=== PATIENT | male | born 1960 | race Caucasian/White ===

== ENCOUNTER → 2020-11-15 17:58 | Outpatient (CLI) | payer BC | END | disposition home or self-care (01) | LOC: D.LABREF 17:58 | PROVIDERS: ATTEND Orthopaedic Surgery | DX: M17.11 Unilateral primary osteoarthritis, right knee (principal) ==

== ENCOUNTER → 2020-11-16 13:51 | Outpatient (CLI) | payer BC | END | disposition home or self-care (01) | LOC: D.MRI 13:00 | PROVIDERS: ATTEND Orthopaedic Surgery | DX: M25.561 Pain in right knee (principal) ==

== ENCOUNTER 2020-11-17 12:59 | Inpatient (IN) | payer BC ==
[~2020-11-17] VITALS: Ht 188 cm; Wt 112.7 kg
[2020-11-28] MEDS ORDERED: ACETAMINOPHEN500 M1 PO (14:53)
[2020-11-28] MEDS ORDERED: ADVIL200 MG PO (14:53)
[2020-11-29 13:14] LABS: BASOPHILS 1.2 % (0-2); HEMATOCRIT 42.3 % (42.0-54.0); HEMOGLOBIN 14.1 g/dL (13.5-17.5); IMMATURE GRANULOCYTES 0.5 % (0-5); LYMPHOCYTE ABS# 2.45 10x3/uL (1.32-3.57); LYMPHOCYTES 40.6 % (15-50); MCH 31.3 pg (26.0-34.0); MCHC 33.3 g/dL (31.0-37.0); MCV 93.8 fL (80.0-100.0); MEAN PLATELET VOLUME 9.6 fL (7.4-10.4); MONOCYTES 10.3 % (2-11); NEUTROPHIL ABS# 2.62 10x3/uL (1.78-5.38); NEUTROPHILS 43.4 % (40-80); PLATELET COUNT 210 10x3/uL (130-400); RBC 4.51 10x6/uL (4.20-6.10); RDW 13.6 % (11.5-14.5)
[2020-11-29 13:22] LABS: BILIRUBIN NEGATIVE (NEGATIVE); KETONE NEGATIVE (NEGATIVE); NITRITE NEGATIVE (NEGATIVE)
[2020-11-29 13:28] LABS: CALC OSMOLALITY 278 mosm/kg (275-300); CALCIUM 8.8 mg/dL (8.5-10.1); CARBON DIOXIDE 26.9 mmol/L (21.0-32.0); CHLORIDE - SERUM 107 mmol/L (98-107); GLUCOSE 102 mg/dL (74-106); POTASSIUM - SERUM 4.3 mmol/L (3.5-5.1); SODIUM 139 mmol/L (136-145); UREA NITROGEN 15 mg/dL (7-18); eGFR NON AFRICAN AMERICAN 81 mL/min (90-120)
[2020-11-29 14:11] LABS: APTT 32.2 SECONDS (22.8-39.4); INR 1.05 (0.85-1.17); PROTIME 12.6 SECONDS (11.6-15.0)
[2020-12-05] VITALS (11 sets, daily range): BP systolic 108–126; BP diastolic 61–81; Ht 188 cm; Wt 112.7 kg
[2020-12-05] MEDS ORDERED: HYDROCODON-ACE1 EA10 PO (10:35)
--- NOTE | 2020-12-05 13:40 | NUR ---
CAUTERY PAD PLACED ON LEFT THIGH. PLASMA BLADE USED ON SETTING 6/8. AQUAMANTYS USED ON SETTING 170. CAUTERY PAD LOT#[id number] EXP. 05/01/2022
--- NOTE | 2020-12-05 16:00 | NUR ---
RECEIVED TO ROOM 1211 VIA BED FROM PACU. A/O X3. DRESSING TO RIGHT KNEE IS DRY AND INTACT. C/O BEING VERY HUNGRY. GIVEN PB AND CRACKERS TO HOLD HIM OVER UNTILL DINNER.
--- NOTE | 2020-12-05 18:15 | NUR ---
ATE ALL OF DINNER. NO C/O AT THIS TIME. NO CHANGES NOTED. CPM ON RIGHT KNEE AT THIS TIME.
--- NOTE | 2020-12-05 20:00 | NUR ---
ALERT RESTING IN BED CPM IN USE, DENIES PAIN OR NEEDS AT THIS TIME, SEE SHIFT ASSESSMENT CALL LIGHT IN REACH
[2020-12-06 00:09] VITALS: BP 100/56
[2020-12-06 05:41] LABS: HEMATOCRIT 33.8 % (42.0-54.0); HEMOGLOBIN 11.1 g/dL (13.5-17.5); MCH 31.1 pg (26.0-34.0); MCHC 32.8 g/dL (31.0-37.0); MCV 94.7 fL (80.0-100.0); MEAN PLATELET VOLUME 10.1 fL (7.4-10.4); RBC 3.57 10x6/uL (4.20-6.10); RDW 13.9 % (11.5-14.5); WBC 6.2 10x3/uL (4.8-10.8)
[2020-12-06 05:49] LABS: CREATININE - SERUM 1.2 mg/dL (0.6-1.3); MAGNESIUM - SERUM 1.9 mg/dL (1.8-2.4)
[2020-12-06 06:00] VITALS: BP 104/58
--- NOTE | 2020-12-06 07:09 | OP ---
PATIENT NAME: JAMIE ARIZMENDI MEDICAL RECORD: [id number] :62 [facility] AD[facility]ION DATE:12/05/20 SURGEON: RICK PETERSEN DO DATE OF OPERATION: 12/05/2020 PROCEDURE: Right total knee arthroplasty. PREOPERATIVE DIAGNOSIS: Right knee osteoarthritis. POSTOPERATIVE DIAGNOSIS: Right knee osteoarthritis. INDICATIONS: Mr. Arizmendi is a 60-year-old male who has undergone through all manner of nonoperative treatment for conservative management for right knee osteoarthritis to no avail. He is tired of dealing with the pain and is affecting his activities of daily living and wants something done surgically. I informed him of the risks and benefits of this including infection, bleeding, damage to nerves or vessels, need for further surgery, loosening of the hardware, failure of hardware, increased pain, loss of range of motion of the knee and blood clots and even and he signed the consent. SURGEON: Rick Petersen DO DESCRIPTION OF PROCEDURE: The patient was taken to the operative suite, laid in supine position, given spinal and a block and light sedation. He was given 2 grams Ancef, 80 mg gentamicin, and a gram of TXA. The left lower extremity was then prepped and draped in sterile fashion. A timeout was performed and everyone was in agreement with correct side, site, patient and procedure. I began by marking out the incision over the anterior aspect of the right knee and covered in Ioban. I then used a 10 blade scalpel to make careful dissection down to the capsule. Then medial parapatellar approach with a fresh 10 blade and everted the patella, removed part of the fat pad. Milled down the patella. Drill holes for a 32 patella size, mixed cement and put on the patella and on the implants, squeezed into place and held it while the cement dried. I then flexed the knee, took out the ACL into the femoral canal using intramedullary guide to cut the distal femur and pinned it into place and cut the distal femur. I then removed that bone and exposed the tibia, cut the proximal tibia plateau. We then brought the knee into extension, removed the menisci and any extra bone. We then saw the need to remove more bone, removed 4 more millimeters of proximal tibia and 10 extension block then fit well. We then removed the pins and the tibia and sized the femur to be 11, using an 11 cutting block and did 4 cuts through the 4-in-1 cutting block. I then exposed the tibia, sized it to be G, pinned it in place and put the 11 femur, trial on and put a 10 poly in between, brought the knee into extension, had full extension and was very stable in flexion and extension to varus and valgus stress. I then drilled the holes for the femoral lug holes and then the tibia 2 holes. I then removed the trials, irrigated and impacted in the actual implants on the tibia first and then the femur, put the 11 poly in between and snapped it into place. I then tested and it was very stable in flexion and extension with the poly in, varus and valgus stress and good range of motion were smooth. I then irrigated with 10% povidone iodine and 500 mL normal saline solution, let it sit per minute and irrigated out with a liter of normal saline and injected the joint cocktail around the periosteum on both the femur and the tibia and into the quad. I then put in the Rei and vancomycin and tobramycin powder, closed the capsule with #1 Vicryl in a [id number] fashion and then #1 Stratafix. Chinedu Fish certified medical assistant ran over that closure in the capsule. He then OPERATIVE REPORT [id number] JAMIE ARIZMENDI closed the skin with 2-0 Vicryl in an inverted interrupted fashion and placed a ZipLine,Adaptic, 4 x 4s, ABD, Webril, Edward wrap and SONY hose stocking on the leg. He was then awakened and taken to recovery in stable condition. Blood loss approximately 300 mL. COMPLICATIONS: None. TRANSINT:[id number] Voice Confirmation ID: [id number] DOCUMENT ID: [id number] RICK PETERSEN DO at 0709 CC: [id number] DICTATION DATE: 12/05/20 1444 HOP WORKER: 12/06/20 [address] [facility] IN [place] [id number] [place] [id number]
--- NOTE | 2020-12-06 07:30 | NUR ---
PT ON CPM. SCD'S/TEDS ON. CL IN REACH. AWAKE, ALERT, AND ORIENTED. REQUESTED AND RECIEVED A CUP OF COFFEE. NO FURTHER NEEDS AT THIS TIME. WCTM
[2020-12-06 08:29] VITALS: BP 99/58
--- NOTE | 2020-12-06 12:00 | NUR ---
PT LAYING IN BED. REQUESTS THAT I PLACE URINAL CLOSER TO HIM. THIS WAS DONE. NO FURTHER NEEDS AT THIS TIME. STATES HE HAS BEEN DOING HIS LEG EXERCISES WHEN I ASKED HIM WHETHER OR NOT HE HAS BEEN GETTING UP BY HIMSELF. CL IN REACH. BED ALARM ON. WCTM
[2020-12-06 12:11] VITALS: BP 110/48
--- NOTE | 2020-12-06 15:26 | NUR ---
PT WATCHING TV. DENIES ANY NEEDS. STATES PAIN IS TOLERABLE. WANTS DISCHARGE PAPERS. CL IN REACH. WCTM
[2020-12-06 16:12] VITALS: BP 125/64
--- NOTE | 2020-12-06 16:54 | MORECARE ---
CASE MANAGEMENT DISCHARGE SUMMARY PATIENT: JAMIE DEAN UNIT: [id number] ADM DATE: 12/05/20 AGE: 60 : 62 SEX: M ROOM/BED: D.1211 AUTHOR: DEVIN JUNIOR PHYSICIAN: REFERRING PHYSICIAN: PASTOR PETERSEN DO DATE OF SERVICE: 12/06/20 Case Management Discharge Planning Summary DCP REVIEW SUMMARY ANTICIPATED D/C DATE: EXPECTED LOS : CASE STATUS: DCP Initiated INITIAL REVIEW: 12/05/2020 INITIAL REVIEWER: Radha Iniguez FINAL DISCHARGE DISPOSITION: : FINAL REVIEWER: FINAL REVIEW DATE: DCP Focus Questions & Answers DCP Screen QUESTION: ANSWER High Risk Factors: : None Walking limitation: Patient stated self rated walking limitation present? : No Age: : 45 - 65 Prior living environment: : Lives with others Disability ranking: : Grade 1: No significant disability DCP Evaluation QUESTION: ANSWER Patient's ability to cope with chronic illness : d. No chronic illness Would patient like to participate in any Care Coordination programs (if applicable): : Not applicable Mental health screen: : No mental health history DCP Re-evaluation QUESTION: ANSWER Would patient like to participate in any Care Coordination programs (if applicable): : Not applicable PATIENT: JAMIE DEAN ENCOUNTER: [id number] MEDICAL RECORD#: [id number] ADMISSION DATE: 12/05/2020 DISCHARGE DATE: ATTENDING MD: PASTOR FIELDS : AGE: 60 MARITAL STATUS: S DC PLAN ID: [id number] FACILITY: [facility] PRINTED ON: 12/06/20 16:54 CT All edits/amendments must be made on the electronic document DICTATION DATE: 12/06/201653 [facility] P[facility]P: DM 12/06/201653 RPT#: [id number] DC DATE: STATUS: ADM IN [facility] [address] [place] [address] END OF REPORT
[2020-12-06] MEDS ORDERED: VISTARIL50 MG PO (17:09)
[2020-12-06] MEDS ORDERED: ELIQUIS2.5 MG PO (17:09)
[2020-12-06] MEDS ORDERED: PERCOCET 10-321 EAC1 PO (17:10)
--- NOTE | 2020-12-06 18:15 | NUR ---
IV THERAPY REMOVED FROM LEFT HAND. DRESSING CHANGE DONE. VERBALIZED UNDERSTANDING OF DISCHARGE INSTRUCTIONS.
--- NOTE | 2020-12-06 18:22 | MORECARE ---
CASE MANAGEMENT DISCHARGE SUMMARY PATIENT: JAMIE DEAN UNIT: [id number] ADM DATE: 12/06/20 AGE: 60 : 62 SEX: M ROOM/BED: D.1211 AUTHOR: SANDI,DOC PHYSICIAN: REFERRING PHYSICIAN: PASTOR PETERSEN DO DATE OF SERVICE: 12/06/20 Case Management Discharge Planning Summary COMMENTS ENTERED DATE: 12/06/20 16:51 CT COMMENT TYPE: Discharge Planning REVIEWER: Radha Iniguez CM MET WITH PATIENT VIA TELEPHONE AFTER OBTAINING VERBAL CONSENT. DISCUSSED AVAILABILITY/NEEDS OF HOME HEALTH, REHAB, AND MEDICAL EQUIPMENT.PATIENT STATES HAS WALKER AND CPM AND HE STATES DME COMPANY IS DELIVERING A BEDSIDE COMMODE. WOULD LIKE OUT PATIENT THERAPY NEAR [place]. I WILL CALL "[employer]" AT [phone] FOR FAX NUMBER AND SET UP PT. PATIENT ANTICIPATES DC TO HOME TODAY. CM TO FOLLOW AND ASSIST NEEDED. DCP REVIEW SUMMARY ANTICIPATED D/C DATE: EXPECTED LOS : CASE STATUS: DCP Initiated INITIAL REVIEW: 12/05/2020 INITIAL REVIEWER: Radha Iniguez FINAL DISCHARGE DISPOSITION: : FINAL REVIEWER: FINAL REVIEW DATE: DCP Focus Questions & Answers DCP Screen QUESTION: ANSWER High Risk Factors: : None Walking limitation: Patient stated self rated walking limitation present? : No Age: : 45 - 65 Prior living environment: : Lives with others Disability ranking: : Grade 1: No significant disability DCP Evaluation QUESTION: ANSWER Patient's ability to cope with chronic illness : d. No chronic illness Would patient like to participate in any Care Coordination programs (if applicable): : Not applicable Mental health screen: : No mental health history DCP Re-evaluation QUESTION: ANSWER Would patient like to participate in any Care Coordination programs (if applicable): : Not applicable PATIENT: JAMIE DEAN ENCOUNTER: [id number] MEDICAL RECORD#: [id number] ADMISSION DATE: 12/06/2020 DISCHARGE DATE: 12/06/2020 ATTENDING MD: PASTOR FIELDS : AGE: 60 MARITAL STATUS: S DC PLAN ID: [id number] FACILITY: [facility] PRINTED ON: 12/06/20 18:22 CT All edits/amendments must be made on the electronic document DICTATION DATE: 12/06/201821 FAMILY LIFE COUNSELOR: ROSAMARIA 12/06/201821 RPT#: [id number] DC DATE:12/06/20 STATUS: DIS IN [place] [id number] [place] [address] END OF REPORT
--- NOTE | 2020-12-10 17:47 | MORECARE ---
CASE MANAGEMENT DISCHARGE SUMMARY PATIENT: JAMIE DEAN UNIT: [id number] ADM DATE: 12/05/20 AGE: 60 : 62 SEX: M ROOM/BED: D.1211 AUTHOR: SANDI,DOC PHYSICIAN: REFERRING PHYSICIAN: PASTOR PETERSEN DO DATE OF SERVICE: 12/10/20 Case Management Discharge Planning Summary COMMENTS ENTERED DATE: 12/06/20 16:51 CT COMMENT TYPE: Discharge Planning REVIEWER: Radha Iniguez CM MET WITH PATIENT VIA TELEPHONE AFTER OBTAINING VERBAL CONSENT. DISCUSSED AVAILABILITY/NEEDS OF HOME HEALTH, REHAB, AND MEDICAL EQUIPMENT.PATIENT STATES HAS WALKER AND CPM AND HE STATES DME COMPANY IS DELIVERING A BEDSIDE COMMODE. WOULD LIKE OUT PATIENT THERAPY NEAR [place]. I WILL CALL "[employer]" AT [phone] FOR FAX NUMBER AND SET UP PT. PATIENT ANTICIPATES DC TO HOME TODAY. CM TO FOLLOW AND ASSIST NEEDED. DCP REVIEW SUMMARY ANTICIPATED D/C DATE: EXPECTED LOS : CASE STATUS: DCP Initiated INITIAL REVIEW: 12/05/2020 INITIAL REVIEWER: Radha Iniguez FINAL DISCHARGE DISPOSITION: : FINAL REVIEWER: FINAL REVIEW DATE: DCP Focus Questions & Answers DCP Screen QUESTION: ANSWER High Risk Factors: : None Walking limitation: Patient stated self rated walking limitation present? : No Age: : 45 - 65 Prior living environment: : Lives with others Disability ranking: : Grade 1: No significant disability DCP Evaluation QUESTION: ANSWER Patient's ability to cope with chronic illness : d. No chronic illness Would patient like to participate in any Care Coordination programs (if applicable): : Not applicable Mental health screen: : No mental health history DCP Re-evaluation QUESTION: ANSWER Would patient like to participate in any Care Coordination programs (if applicable): : Not applicable PATIENT: JAMIE DEAN ENCOUNTER: [id number] MEDICAL RECORD#: [id number] ADMISSION DATE: 12/05/2020 DISCHARGE DATE: 12/06/2020 ATTENDING MD: PASTOR FIELDS : AGE: 60 MARITAL STATUS: S DC PLAN ID: [id number] FACILITY: [facility] PRINTED ON: 12/10/20 17:47 CT All edits/amendments must be made on the electronic document DICTATION DATE: 12/10/201746 DAY CAMP COUNSELOR: ROSAMARIA 12/10/201746 RPT#: [id number] DC DATE:12/06/20 STATUS: DIS IN [facility] [address] [place] [address] END OF REPORT
== END 2020-12-06 18:18 | disposition home or self-care (01) | DRG 470 ==
LOC: OBSVTIME → D.SDCHOLD 12-05 11:00 → D.M3 12-05 13:28 → D.SDCHOLD 12-05 15:46 → D.M3 12-05 15:46 → OBSVTIME 12-05 21:07 → D.M3 12-06 13:51
PROVIDERS: Emergency Medicine; ADMIT Orthopaedic Surgery; ATTEND Orthopaedic Surgery
PROC: 0SRC0J9 Replacement of Right Knee Joint with Synthetic Substitute, Cemented, Open Approach (ICD-10-PCS; principal; 2020-12-05 11:00)
DX: M17.11 Unilateral primary osteoarthritis, right knee (principal); K21.9 Gastro-esophageal reflux disease without esophagitis; Z72.0 Tobacco use